=== PATIENT | female | born 1950 | race Caucasian/White ===

== ENCOUNTER → 2017-03-24 | Outpatient (CLI) | payer MEDICARE, OTHER ==
[~2017-03-24] MED LIST: CALCIUM 600-D 61 TAB PO
== END ==
LOC: MC.RAD 14:20
DX: Z12.31 Encounter for screening mammogram for malignant neoplasm of breast (principal)

== ENCOUNTER 2017-04-16 13:14 | Outpatient (CLI) | payer MEDICARE, OTHER ==
[~2017-04-16] VITALS: Ht 162.6 cm; Wt 42.0 kg
[2017-04-16 14:00] VITALS: BP 111/56; PULSE 78; TEMP 98.5
[2017-04-16] MEDS ORDERED: PROBIOTIC FORMU1 CAP PO (14:10)
== END 2017-04-16 15:07 | disposition home or self-care (01) ==
LOC: EUO 13:14
DX: M81.0 Age-related osteoporosis without current pathological fracture (principal)
CPT/HCPCS: J3489

== ENCOUNTER 2018-04-23 14:12 | Outpatient (CLI) | payer MEDICARE, OTHER ==
[~2018-04-23] VITALS: Ht 162.6 cm; Wt 43.0 kg
[~2018-04-23 14:12] MED LIST changes: +PROBIOTIC FORMU1 CAP PO
[2018-04-23 14:48] VITALS: BP 123/75; PULSE 63; TEMP 97.7
[2018-04-23] MEDS ORDERED: IMODIUM 2MG CAPS2 MG PO (14:51)
== END 2018-04-23 15:30 | disposition home or self-care (01) ==
LOC: EUO 14:12
DX: M81.0 Age-related osteoporosis without current pathological fracture (principal); Z79.899 Other long term (current) drug therapy
CPT/HCPCS: J3489

== ENCOUNTER → 2018-06-02 | Outpatient (CLI) | payer MEDICARE, OTHER ==
[~2018-06-02] MED LIST changes: +IMODIUM 2MG CAPS2 MG PO
== END ==
LOC: MC.RAD 11:40
DX: Z12.31 Encounter for screening mammogram for malignant neoplasm of breast (principal)

== ENCOUNTER 2019-05-14 12:56 | Outpatient (CLI) | payer MEDICARE, OTHER ==
[~2019-05-14] VITALS: Ht 162.6 cm; Wt 42.0 kg
[2019-05-14 13:10] VITALS: BP 115/59; PULSE 74; TEMP 98
[2019-05-14] MEDS ORDERED: ASPIRIN E.C. 8181 MG PO (13:17)
[2019-05-14] MEDS ORDERED: HYDROXYURE500 MG/CAP PO (13:17)
[2019-05-14] MEDS ORDERED: B-121000 MCG PO (13:18)
[2019-05-14] MEDS ORDERED: KERATIN PO (13:20)
== END 2019-05-14 13:52 | disposition home or self-care (01) ==
LOC: EUO 12:56
DX: M81.0 Age-related osteoporosis without current pathological fracture (principal); Z79.899 Other long term (current) drug therapy
CPT/HCPCS: J3489

== ENCOUNTER → 2019-06-09 | Outpatient (CLI) | payer MEDICARE, OTHER ==
[~2019-06-09] MED LIST changes: +ASPIRIN E.C. 8181 MG PO; +B-121000 MCG PO; +HYDROXYURE500 MG/CAP PO; +KERATIN PO
== END ==
LOC: MC.RAD 11:15
DX: Z12.31 Encounter for screening mammogram for malignant neoplasm of breast (principal)

== ENCOUNTER → 2020-06-15 | Outpatient (CLI) | payer MEDICARE, OTHER ==
[~2020-06-15] MED LIST changes: +CARAFATE 1GM1 G PO; +PRILOSEC 20MG20 MG PO; +ZOLOFT 25MG25 MG PO
== END ==
LOC: MC.RAD 10:30
DX: Z12.31 Encounter for screening mammogram for malignant neoplasm of breast (principal)

== ENCOUNTER → 2021-06-07 | Outpatient (CLI) | payer MEDICARE, OTHER | LOC: COL.RAD 09:40 | DX: Z12.2 Encounter for screening for malignant neoplasm of respiratory organs (principal); F17.210 Nicotine dependence, cigarettes, uncomplicated; J43.9 Emphysema, unspecified; J84.10 Pulmonary fibrosis, unspecified ==

== ENCOUNTER → 2021-06-11 | Outpatient (CLI) | payer MEDICARE, OTHER | LOC: COL.PUL 05-29 08:00 | DX: J43.8 Other emphysema (principal) ==

== ENCOUNTER → 2021-07-25 | Outpatient (CLI) | payer MEDICARE | LOC: MC.RAD 10:29 | DX: Z12.31 Encounter for screening mammogram for malignant neoplasm of breast (principal) ==

== ENCOUNTER 2022-03-13 09:29 | Emergency (ER) | payer MEDICARE ==
[~2022-03-13] VITALS: Ht 162.6 cm; Wt 38.2 kg
[2022-03-13 09:39] VITALS: TEMP 98
[2022-03-13 10:00] LABS: BASO # 0.1 K/mm3 (0.0-0.2); BASO % 0.7 % (0.0-2.0); EOS % 0.3 % (0.0-4.0); GRAN # 5.1 K/mm3 (1.4-6.5); GRAN % 75.5 % (42.2-75.2); HEMATOCRIT 38.2 % (37.0-47.0); HEMOGLOBIN 12.8 g/dl (12.5-16.0); LYMPH # 0.8 K/mm3 (1.2-3.4); LYMPH % 11.4 % (20.0-51.0); MEAN CELL VOLUME 103 fl (80.0-100.0); MEAN CORPUSCULAR HEMOGLOBIN 35 pg (27-31); MEAN CORPUSCULAR HGB CONC 34 g/dl (33.0-37.0); MEAN PLATELET VOLUME 9.7 fl (7.4-10.4); MONO # 0.8 K/mm3 (0.1-0.6); MONO % 11.5 % (1.7-9.3); PLATELET COUNT 243 K/mm3 (130-400); REDCELL DISTRIBUTION WIDTH-CV 14.6 % (11.5-14.5)
[2022-03-13 10:17] LABS: ALBUMIN 3.9 gm/dL (3.4-4.8); BILIRUBIN,TOTAL 0.5 mg/dL (0.2-1.2); CALCIUM 9.4 mg/dL (8.4-10.2); CREATININE, serum 0.79 mg/dL (0.57-1.11); POTASSIUM 4.5 mmol/L (3.5-4.5); TOTAL PROTEIN 6.9 gm/dL (6.2-8.1)
[2022-03-13 10:23] LABS: TROPONIN-I 0.013 ng/mL (0.00-0.033)
[2022-03-13 11:27] LABS: COLLECTION METHOD CLEAN CATCH
[2022-03-13 11:58] LABS: AMORPHOUS CRYSTAL Present (NOT PRESENT); MUCOUS Present (NOT PRESENT); SQUAMOUS EPITHELIAL 0-2 /hpf (0-10); URINE BACTERIA Rare /hpf (NONE SEEN)
[2022-03-13 12:01] LABS: PH 7.5 (5.0-8.5); URINE COLOR Yellow (YELLOW); URINE GLUCOSE Negative (NEGATIVE); URINE KETONE Negative (NEGATIVE); URINE PROTEIN(semi-quant) Negative (NEGATIVE)
[2022-03-13 12:02] LABS: URINE APPEARANCE Hazy (CLEAR/HAZY); URINE BLOOD TRACE-LYSED (NEGATIVE); URINE NITRATE Negative (NEGATIVE); URINE UROBILINOGEN 0.2 E.U/dL (0.2-1.0)
[2022-03-13 12:11] VITALS: BP 125/68; PULSE 67
== END 2022-03-13 12:13 | disposition home or self-care (01) ==
LOC: COL.ER 09:29
PROVIDERS: Emergency Medicine
DX: S09.90XA Unspecified injury of head, initial encounter (principal); S60.211A Contusion of right wrist, initial encounter; S90.01XA Contusion of right ankle, initial encounter; S00.211A Abrasion of right eyelid and periocular area, initial encounter; R55 Syncope and collapse; W18.30XA Fall on same level, unspecified, initial encounter
CPT/HCPCS: J7030

== ENCOUNTER 2022-04-26 10:30 | Outpatient (RCR) | payer MEDICARE | END 2022-04-29 | disposition home or self-care (01) | LOC: MKS.ESL.PT | DX: S14.129A Central cord syndrome at unspecified level of cervical spinal cord, initial encounter (principal); Z98.1 Arthrodesis status ==

== ENCOUNTER → 2022-09-03 | Outpatient (CLI) | payer MEDICARE | LOC: MC.RAD 12:59 | DX: Z12.31 Encounter for screening mammogram for malignant neoplasm of breast (principal) ==

== ENCOUNTER → 2023-09-19 | Outpatient (CLI) | payer MEDICARE | LOC: MC.RAD 10:56 | DX: Z12.31 Encounter for screening mammogram for malignant neoplasm of breast (principal) ==